=== PATIENT | female | born 1990 | race Hispanic/Latino ===

== ENCOUNTER 2016-12-31 09:55 | Emergency (ER) | payer OTHER ==
[2016-12-31 09:59] VITALS: BMI 20.3
[2016-12-31 10:02] VITALS: BP 122/77; PULSE 67; RESP 20; TEMP 98.5; O2SAT 98
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
--- NOTE | 2016-12-31 11:34 | RAD ---
PROCEDURE: Radiographs of the Right Shoulder HISTORY: shoulder pain COMPARISON: Comparison made with concurrent radiographs right clavicle FINDINGS: BONES: No evidence of acute displaced fracture nor dislocation. . . Osseous structures intact. JOINTS: Glenohumeral and acromioclavicular joints preserved. No significant osteoarthritis. SOFT TISSUES: There is a small rounded sclerotic density overlying inferior 1/3 of the glenoid which could represent small bone island or osteoma OTHER FINDINGS: None. IMPRESSION: No evidence of acute displaced fracture nor dislocation. Consider repeat radiographs in 5-10 days if symptoms persist as most fractures should become radiographically evident this timeframe. See above discussion for additional details and findings
--- NOTE | 2016-12-31 11:35 | RAD ---
PROCEDURE: Radiographs of the right clavicle. HISTORY: pain COMPARISON: Correlation made with concurrent radiographs right clavicle FINDINGS: RIGHT CLAVICLE: No fracture or focal lesion. JOINTS: Right acromioclavicular and glenohumeral joints are grossly unremarkable with no significant osteoarthritis. SOFT TISSUES: Small elliptical shaped sclerotic density overlying the inferior 1/3 of the glenoid possibly representing bone island or osteoma. OTHER FINDINGS: None. IMPRESSION: No evidence of acute displaced fracture nor dislocation
== END 2016-12-31 11:25 | disposition home or self-care (01) ==
LOC: H.ER 09:55
DX: S49.91XA Unspecified injury of right shoulder and upper arm, initial encounter (principal); V29.9XXA Motorcycle rider (driver) (passenger) injured in unspecified traffic accident, initial encounter; Y92.410 Unspecified street and highway as the place of occurrence of the external cause